=== PATIENT | female | born 1970 | race African-American/Black ===

== ENCOUNTER 2017-06-17 11:14 | Outpatient (CLI) | payer OTHER ==
--- NOTE | 2017-06-17 13:23 | RAD ---
CERVICAL SPINE SERIES THREE VIEWS: History: Neck pain x 2 months. History of previous surgery in October 2016. FINDINGS: Vertebral bodies are normal in height. Anterior cervical fusion has been performed at the C3-4 level with placement of disc implant. The implant is within the confines of disc space. The remainder of the disc spaces all fairly well preserved with some minimal osteophytic change. No soft tissue swell ing. IMPRESSION: Post-operative changes of the spine. POS: OFF
== END 2017-06-17 11:15 | disposition home or self-care (01) ==
LOC: TBSIIMAG 11:14
PROVIDERS: ATTEND Physician Assistant
DX: M54.2 Cervicalgia (principal); Z98.890 Other specified postprocedural states
CPT/HCPCS: 72040